=== PATIENT | female | born 1970 | race Hispanic/Latino ===

== ENCOUNTER 2017-03-12 16:37 | Emergency (ER) | payer OTHER ==
[2017-03-12 16:37] VITALS: BMI 25.0
[2017-03-12 17:05] VITALS: TEMP 97.9
[2017-03-12 18:12] LABS: BASO # 0.03 K/mm3 (0.0-2.0); BASO % 0.4 % (0.0-3.0); EOS # 0.1 (0.0-0.7); EOS % 1.7 % (1.5-5.0); GRAN # 3.94 (1.4-6.5); GRAN % 57.1 % (50.0-68.0); HEMOGLOBIN 14.2 g/dL (12.0-16.0); LYMPH # 2.2 (1.2-3.4); LYMPH % 32.5 % (22.0-35.0); MEAN CELL VOLUME 91.3 fl (80.0-105.0); MEAN CORPUSCULAR HEMOGLOBIN 30.9 pg (25.0-35.0); MEAN CORPUSCULAR HGB CONC 33.8 g/dl (31.0-37.0); MONO # 0.6 (0.1-0.6); MONO % 8.3 % (1.0-6.0); PLATELET COUNT 331 10^3/uL (120.0-450.0); RED CELL DISTRIBUTION WIDTH 13.4 % (11.5-14.5); WHITE BLOOD COUNT 6.9 10^3/ul (4.5-11.0)
--- NOTE | 2017-03-12 18:19 | CT ---
PROCEDURE: CT HEAD WITHOUT CONTRAST. HISTORY: headache, blurry vision to the R eye COMPARISON: None available. TECHNIQUE: Axial computed tomography images were obtained through the head/brain without intravenous contrast. Radiation dose: 677.45 Total exam DLP = mGy-cm. This CT exam was performed using one or more of the following dose reduction techniques: Automated exposure control, adjustment of the mA and/or kV according to patient size, and/or use of iterative reconstruction technique. FINDINGS: HEMORRHAGE: No intracranial hemorrhage. BRAIN: No mass effect or edema. No atrophy or chronic microvascular ischemic changes. VENTRICLES: Unremarkable. No hydrocephalus. CALVARIUM: Unremarkable. PARANASAL SINUSES: Unremarkable as visualized. No significant inflammatory changes. MASTOID AIR CELLS: Unremarkable as visualized. No inflammatory changes. OTHER FINDINGS: None. IMPRESSION: No intracranial mass, hemorrhage or evidence of acute infarct
[2017-03-12 18:36] LABS: INR 0.94 (0.93-1.08); PARTIAL THROMBOPLASTIN TIME 29.5 Seconds (23.7-30.8); PROTHROMBIN TIME 10.2 Seconds (9.9-11.8)
--- NOTE | 2017-03-12 18:52 | ED PDOC ---
Arrival/HPI - General Chief Complaint: Headache Time Seen by Provider: 03/12/17 16:56 Historian: Patient - History of Present Illness Narrative History of Present Illness (Text): 03/12/17 18:53 A 46 year old female, whose past medical history includes cervicogenic headache and cluster headaches diagnosed in 2007, has had a full work up in the past which yielded to these diagnosis. Today the patient is complaining of a new headache that is on top of her head and describes it as a constant, "popping" sensation with nausea and blurry vision to right eye. Patient also reports chronic cluster and cervicogenic headaches occurring along side with her new headache, she states that she has at least 5-6 episodes a month of the chronic headache and states that they start at the right upper back radiating to occipital head, and usually responds to treatment, however the new headache with the nausea and blurry vision is not responding. Patient reports lightheadedness but denies vertigo, fever, head trauma, vomiting, chest pain, neurological focal deficits or any other complaints at this time. Patient follows up with neurologist and has yearly eye exams, two years ago and last year, which were normal. Neurologist Dr. Dominguez PMD: Dr. Julia Ingram Symptom Onset: Sudden Symptom Course: Unchanged Activities at Onset: Rest Context: Home Past Medical History - Provider Review Nursing Documentation Reviewed: Yes - Infectious Disease Hx of Infectious Diseases: None - Tetanus Immunization Tetanus Immunization: Up to Date - Cardiac Hx Cardiac Disorders: No - Pulmonary Hx Respiratory Disorders: No - Neurological Hx Neurological Disorder: Yes Hx Migraine: Yes - HEENT Hx HEENT Disorder: No - Renal Hx Renal Disorder: No - Endocrine/Metabolic Hx Endocrine Disorders: No - Hematological/Oncological Hx Blood Disorders: No - Integumentary Hx Dermatological Disorder: No - Musculoskeletal/Rheumatological Hx Falls: No - Gastrointestinal Hx Gastrointestinal Disorders: Yes Hx Gastroesophageal Reflux: Yes - Genitourinary/Gynecological Hx Genitourinary Disorders: Yes Other/Comment: endometriosis - Psychiatric Hx Psychophysiologic Disorder: No Hx Anxiety: No Hx Bipolar Disorder: No Hx Depression: No Hx Emotional Abuse: No Hx Hallucinations: No Hx Panic Disorder: No Hx Post Traumatic Stress Disorder: No Hx Psychosis: No Hx Physical Abuse: No Hx Schizophrenia: No Hx Sexual Abuse: No Hx Substance Use: No - Surgical History Hx Section: Yes Hx Cholecystectomy: Yes Other/Comment: hernia x 2 - Anesthesia Hx Anesthesia: Yes Hx Anesthesia Reactions: No Hx Malignant Hyperthermia: No - Suicidal Assessment Feels Threatened In Home Enviroment: No Family/Social History - Physician Review Nursing Documentation Reviewed: Yes Family/Social History: No Known Family HX Smoking Status: Never Smoked Hx Alcohol Use: No Hx Substance Use: No Hx Substance Use Treatment: No Allergies/Home Meds Allergies/Adverse Reactions: Allergies cefuroxime Allergy (Verified 03/12/17 16:57) RASH levofloxacin [From Levaquin] Allergy (Verified 03/12/17 16:57) RASH Penicillins Allergy (Verified 03/12/17 16:57) ANAPHYLAXIS Home Medications: Home Meds Medication Instructions Recorded Confirmed Dexlansoprazole [Dexilant] 60 mg PO DAILY 11/12/13 03/12/17 Review of Systems - Physician Review All systems were reviewed & negative as marked: Yes - Review of Systems Constitutional: Other (lightheadedness). absent: Fevers Eyes: Other (blurry vision to right eye) Cardiovascular: absent: Chest Pain Gastrointestinal: Nausea. absent: Vomiting Neurological: Headache Physical Exam Vital Signs Reviewed: Yes Vital Signs Temp Pulse Resp BP Pulse Ox 03/12/17 23:05 62 18 101/65 100 03/12/17 20:00 68 16 127/82 99 03/12/17 18:45 72 16 125/80 99 03/12/17 16:53 97.9 F 71 16 126/78 99 Temperature: Afebrile Blood Pressure: Normal Pulse: Regular Respiratory Rate: Normal Appearance: Positive for: Well-Appearing, Non-Toxic, Comfortable Pain Distress: None Mental Status: Positive for: Alert and Oriented X 3 - Systems Exam Head: Present: Atraumatic, Normocephalic Pupils: Present: PERRL Extroacular Muscles: Present: EOMI Conjunctiva: Present: Normal Mouth: Present: Moist Mucous Membranes Neck: Present: Normal Range of Motion Respiratory/Chest: Present: Clear to Auscultation, Good Air Exchange. No: Respiratory Distress, Accessory Muscle Use Cardiovascular: Present: Regular Rate and Rhythm, Normal S1, S2. No: Murmurs Abdomen: Present: Normal Bowel Sounds. No: Tenderness, Distention, Peritoneal Signs Back: Present: Normal Inspection Upper Extremity: Present: Normal Inspection. No: Cyanosis, Edema Lower Extremity: Present: Normal Inspection. No: Edema Neurological: Present: GCS=15, CN II-XII Intact, Speech Normal, Motor Func Grossly Intact, Normal Sensory Function, Normal Cerebellar Funct, Norm Deep Tendon Reflexes, Gait Normal, Memory Normal Skin: Present: Warm, Dry, Normal Color. No: Rashes Psychiatric: Present: Alert, Oriented x 3, Normal Insight, Normal Concentration Medical Decision Making ED Course and Treatment: 03/12/17 18:00 Impression: A 46 year old female with headache. Plan: -- [place] head -- [place] [facility] [place]ess and disposition Progress Notes: Patient offered reglan and benadryl IV, which she is refusing, she states that she would rather wait for the CT head results. [facility] [place] Pt sent to CT. Lab results reviewed and are wnl. Patient returned from CT without any incident , patient continues to complain of pain to the top of her head associated with nausea and vision, states that the headache is unchanged from initial evaluation and she continues to any analgesic medication at this time. On exam, patient is resting comfortably in bed in no acute distress. Repeat neuro exam shows no acute focal findings. 03/12/17 18:20 CT HEAD WITHOUT CONTRAST Creator : VIKTOR METZ MD FINDINGS: HEMORRHAGE: No intracranial hemorrhage. BRAIN: No mass effect or edema. No atrophy or chronic microvascular ischemic changes. VENTRICLES: Unremarkable. No hydrocephalus. CALVARIUM: Unremarkable. PARANASAL SINUSES: Unremarkable as visualized. No significant inflammatory changes. MASTOID AIR CELLS: Unremarkable as visualized. No inflammatory changes. IMPRESSION: No intracranial mass, hemorrhage or evidence of acute infarct Call placed to patient's neurologist Dr. Dominguez and case discussed in great detail. Dr. Dominguez states that based on the history and exam, the patient likely has a migraine and a cluster headache, he recommends a cocktail of medications to stop the symptoms, solumedrol 500 mg IV slow infusion over 1 hr, depakote 500 mg IV slow infusion over 1 hr, benadryl 50 mg IV, toradol 30 mg IV , and zofran 4 mg IV. He recommends to observe in the ER for 2 hour complete resolution of her headache and to order a CTA brain with IV contrast. He states that as long as the patient reports improvement of her headache and the CTA brain is within normal limits with no acute findings, that the patient can be discharged and he will follow-up with the patient in his office. Further plan of care in the emergency room was discussed with the patient including CTA brain with IV contrast was ordered, as well as medication cocktail as ordered by Dr. Dominguez for the patient's headache, which the patient at this time agrees to. CTA brain w/ IV contrast ordered. Solumedrol 500 mg IV slow infusion over 1 hr, depakote 500 mg IV slow infusion over 1 hr, benadryl 50 mg IV, toradol 30 mg IV , and zofran 4 mg IV ordered. Patient was medicated with benadryl 50 mg IV, toradol 30 mg IV, and zofran 4 mg IV. Solumedrol 500 mg IV slow infusion over 1 hr and depakote 500 mg IV slow infusion over 1 hr was ordered and pending from pharmacy, in the mean time the patient went to CTA. Patient returns from CTA. Patient reports significant improvement of her headache. At this time CT results are pending, patient states that she only wants to wait for the CTA results and is refusing to be medicated with Solu- Medrol and Depakote IV, as it will take "too long" and wishes to leave as soon as the CTA results are back. CTA brain w/ IV contrast : FINDINGS: Right internal carotid artery: Intracranial segment is patent with no significant stenosis. No aneurysm. Right anterior cerebral artery: No occlusion or significant stenosis. No aneurysm. Right middle cerebral artery: No occlusion or significant stenosis. No aneurysm. Right posterior cerebral artery: No occlusion or significant stenosis. No aneurysm. Right vertebral artery: Unremarkable as visualized. Left internal carotid artery: Intracranial segment is patent with no significant stenosis. No aneurysm. Left anterior cerebral artery: No occlusion or significant stenosis. No aneurysm. Left middle cerebral artery: No occlusion or significant stenosis. No aneurysm. Left posterior cerebral artery: No occlusion or significant stenosis. No aneurysm. Left vertebral artery: Unremarkable as visualized. Basilar artery: No occlusion or significant stenosis. No aneurysm. IMPRESSION: Unremarkable CT examination of the head, as detailed above. Dictated and Authenticated by: Ivette Patel MD 03/12/2017 11:20 PM Eastern Time ([place] & [place]) CTA results discussed with the patient and in great detail. Patient states that she feels comfortable going home and intends to follow up with her neurologist Dr. Dominguez. Patient is still refusing IV Solu-Medrol and Depakote at this time. States that she feels she does not need those 2 medications, and that she feels significantly improved. On exam, patient is laying comfortably in no distress. Repeat neuro exam shows findings. VS : P 62 BP 101/65 R 18 O2sat 100%RA. Patient was instructed to follow up with her neurologist in 1-2 days without fail. Return to the emergency room at any time for any new or worsening symptoms. Patient states she fully agrees with and understands discharge instructions. States that she agrees with the plan and disposition. Verbalized and repeated discharge instructions and plan. I have given the patient opportunity to ask any additional questions. - Lab Interpretations Lab Results: 03/12/17 17:50 03/12/17 17:50 Lab Results 03/12/17 17:50: PT 10.2, INR 0.94, APTT 29.5 03/12/17 17:50: Sodium 139, Potassium 3.9, Chloride 103, Carbon Dioxide 26, Anion Gap 14, BUN 16, Creatinine 0.8, Est GFR ( Amer) > 60, Est GFR (Non- Af Amer) > 60, Random Glucose 90, Calcium 9.3, Total Bilirubin 0.2, AST 29, ALT 34, Alkaline Phosphatase 81, Total Protein 7.8, Albumin 4.5, Globulin 3.1, Albumin/Globulin Ratio 1.5 03/12/17 17:50: WBC 6.9 D, RBC 4.60, Hgb 14.2, Hct 42.0, MCV 91.3, MCH 30.9, MCHC 33.8, RDW 13.4, Plt Count 331, MPV 9.0, Gran % 57.1, Lymph % (Auto) 32.5, [place] % (Auto) 8.3 H, Eos % (Auto) 1.7, Baso % (Auto) 0.4, Gran # 3.94, Lymph # 2.2, [place] # 0.6, Eos # 0.1, Baso # 0.03 I have reviewed the lab results: Yes - RAD Interpretation Radiology Orders: 03/12/17 17:40 HEAD W/O CONTRAST [CT] Stat 03/12/17 21:06 ANGIOGRAPHY HEAD [CT] Stat - Medication Orders Current Medication Orders: Discontinued Medications Diphenhydramine HCl (Benadryl) 50 mg IVP STAT STA Stop: 03/12/17 21:08 Last Admin: 03/12/17 21:31 Dose: 50 mg Valproate Sodium 500 mg/ (Sodium Chloride) 105 mls @ 100 mls/hr IVPB STAT STA Stop: 03/12/17 22:09 Last Admin: 03/12/17 22:55 Dose: Not Given Non-Admin Reason: Patient Refused Methylprednisolone 500 mg/ (Sodium Chloride) 100 mls @ 100 mls/hr IVPB STAT STA Stop: 03/12/17 22:13 Last Admin: 03/12/17 22:51 Dose: 100 mls/hr Comments: Patient wished to stop infusion. Iohexol (Omnipaque 300 100 Ml) Confirm Administered Dose 100 ml IJ .STK-MED ONE Stop: 03/12/17 21:23 Last Admin: 03/12/17 21:32 Dose: Iohexol (Omnipaque 350 100 Ml) Confirm Administered Dose 350 mg .ROUTE .STK-MED ONE Stop: 03/12/17 22:05 Ketorolac Tromethamine (Toradol) 30 mg IVP STAT STA Stop: 03/12/17 21:08 Last Admin: 03/12/17 21:31 Dose: 30 mg Ondansetron HCl (Zofran Inj) 4 mg IVP STAT STA Stop: 03/12/17 21:08 Last Admin: 03/12/17 21:32 Dose: 4 mg - PA / [employer] / Resident Statement MD/DO has reviewed & agrees with the documentation as recorded. - Scribe Statement The provider has reviewed the documentation as recorded by the Sindhu Castro Provider Scribe Attestation: All medical record entries made by the Sindhu were at my direction and personally dictated by me. I have reviewed the chart and agree that the record accurately reflects my personal performance of the history, physical exam, medical decision making, and the department course for this patient. I have also personally directed, reviewed, and agree with the discharge instructions and disposition. Disposition/Present on Arrival - Present on Arrival Any Indicators Present on Arrival: No History of DVT/PE: No History of Uncontrolled Diabetes: No Urinary Catheter: No History of Decub. Ulcer: No History Surgical Site Infection Following: None - Disposition Have Diagnosis and Disposition been Completed?: Yes Diagnosis: Headache Disposition: HOME/ ROUTINE Disposition Time: 22:30 Patient Plan: Discharge Condition: STABLE Discharge Instructions (ExitCare): Acute Headache (ED) Print Language: PORTUGUESE Additional Instructions: Thank you for letting us take care of you today. You were treated for headache. The emergency medical care you received today was directed at your acute symptoms.Return to the Emergency Department if your symptoms worsen, do not improve, or if you have any other problems. Please contact Dr. Dominguez in 2 days for re-evaluation and follow up. Bring any paperwork you were given at discharge with you along with any medications you are taking to your follow up visit. Our treatment cannot replace ongoing medical care by a primary care provider (PCP) outside of the emergency department. Thank you for allowing the [facility] team to be part of your care today. Forms: [employer] (Mauritanian), WORK NOTE
[2017-03-12 19:12] LABS: ALT/SGPT 34 U/L (7-56); AST/SGOT 29 U/L (15-39); BLOOD UREA NITROGEN 16 mg/dL (7-21); CALCIUM 9.3 mg/dL (8.4-10.5); GFR AFRICAN-AMERICAN > 60; GFR NON-AFRICAN AMERICAN > 60
[2017-03-12 19:21] LABS: ALB/GLOB RATIO 1.5 (1.1-1.8); ALBUMIN 4.5 g/dL (3.0-4.8)
[2017-03-12] MEDS ORDERED: MethylPREDNISolone 40 mg Vial IVPB STA (21:06)
[2017-03-12] MEDS ORDERED: DiphenhydrAMINE 50 mg/ml Inj IVP STA (21:07)
[2017-03-12] MEDS ORDERED: Valproate 500 MG in Sodium Chloride 0.9% 100 ML IVPB STA (21:07)
[2017-03-12] MEDS ORDERED: methylPREDNISolone 500 MG in Sodium Chloride 0.9% 100 ML IVPB STA (21:14)
[2017-03-12] MEDS ORDERED: Iohexol 300 100 ML IJ ONE (21:22)
[2017-03-12] MEDS ORDERED: Iohexol 350 MG/100 ML VIAL ONE (22:04)
[2017-03-12 23:08] VITALS: BP 101/65; PULSE 62; RESP 18; O2SAT 100
--- NOTE | 2017-03-15 11:13 | CT ---
PROCEDURE: CT Angiography of the Brain. HISTORY: headache, R sided blurry vision COMPARISON: None available. TECHNIQUE: CT angiography of the intracranial arteries was performed. Coronal and sagittal maximum intensity projection reformated images were generated. This CT exam was performed using one or more of the following dose reduction techniques: Automated exposure control, adjustment of the mA and/or kV according to patient size, and/or use of iterative reconstruction technique. FINDINGS: INTERNAL CEREBRAL ARTERIES: Unremarkable. The skull base, petrous, cavernous and supraclinoid segments are bilaterally widely patient. ANTERIOR CEREBRAL ARTERIES: Unremarkable. A1 and A2 segments are widely patent. Smaller distal branches unremarkable, as visualized. MIDDLE CEREBRAL ARTERIES: Unremarkable. M1 and M2 segments are widely patent. Perisylvian branches grossly symmetric. POSTERIOR CIRCULATION: Basilar Artery: Unremarkable. Distal Vertebral Arteries: Unremarkable. Posterior Cerebral Arteries: Unremarkable. Posterior Inferior Cerebellar Arteries: Unremarkable. ANEURYSM/ VASCULAR MALFORMATIONS: None. OTHER FINDINGS: The report concurs with the preliminary [facility] report IMPRESSION: Unremarkable CT Angiography of the Brain.
== END 2017-03-12 23:52 | disposition home or self-care (01) ==
LOC: ED 16:37
DX: R51 Headache (principal)
CPT/HCPCS: 70450; 70496; 80053; 85025; 85610; 85730; 96365; 96375; 99285; J1200; J1885; J2405; J2930; Q9967